=== PATIENT | male | born 1980 | race Caucasian/White ===

== ENCOUNTER 2025-07-16 13:04 | Inpatient (IN) | payer BC, SELFPAY ==
[2025-07-16] VITALS (8 sets, daily range): BP systolic 151–169; BP diastolic 99–119; PULSE 90–116; RESP 13–20; TEMP 36.4; O2SAT 97–99; BMI 33.1
--- NOTE | 2025-07-16 13:44 | ECG_ITS ---
Test Reason : weakness Blood Pressure : */* mmHG Vent. Rate : 114 BPM Atrial Rate : 114 BPM P-R Int : 136 ms QRS Dur : 84 ms QT Int : 312 ms P-R-T Axes : 7 56 41 degrees QTcB Int : 430 ms Sinus tachycardia Otherwise normal ECG No previous ECGs available Referred By: Jose Toribio Electronically Signed By: VANESSA MONTANEZ MD
--- NOTE | 2025-07-16 13:44 | ED.GENADULT ---
HPI - General Adult General Chief complaint: ETOH/Substance Use Stated complaint: alcohol withdrawal Time Seen by Provider: 07/16/25 14:45 Related Data Previous Rx's ?Medication ?Instructions ?Recorded folic acid 1 mg tablet 1 mg PO DAILY #30 tabs 07/19/25 multivitamin (Daily-Kaylyn tablet) 1 tab PO DAILY #30 tabs 07/19/25 naltrexone 50 mg tablet 25 mg (1/2 x 50 mg) PO DAILY #30 07/19/25 tabs thiamine mononitrate (vit B1) 100 100 mg PO DAILY #30 tabs 07/19/25 mg tablet trazodone 50 mg tablet 50 mg PO BEDTIME PRN insomnia #30 07/19/25 tabs Allergies Allergy/AdvReac Type Severity Reaction Status Date / Time No Known Allergies Allergy Verified 07/22/25 09:57 [facility] Social History Social History Household Members: None Housing: Apartment Alcohol intake: current Alcohol intake frequency: 3 or more drinks per day Alcohol type: hard liquor Patient Tobacco Use Status: Never used Tobacco service: No Physical Exam ED Vital Signs: BMI result Body Mass Index 33.1 Course Course Course Narrative: RME, this is a rapid medical exam performed by Brandan Toribio please refer to primary provider for complete H&P- 45-year-old male presents for evaluation of alcohol withdrawal symptoms. He reports that he drinks a 6 pack and half a bottle of liquor daily. He had last drink was just before midnight. He reports nausea, sweatiness, feeling unwell. He is slightly tachycardic and hypertensive in triage. Plan for medical clearance Medications Administered Discontinued Medications Generic Name Dose Route Start Last Admin Trade Name Kolby PRN Reason Stop Dose Admin Clonidine HCl 0.1 mg 07/16/25 21:00 07/17/25 08:15 Clonidine Hcl 0.1 Mg Tablet PO 0.1 mg BID ARELI Administration Protocol Folic Acid 1 mg 07/17/25 09:00 07/19/25 07:38 Folic Acid 1 Mg Tablet PO 07/20/25 08:59 1 mg DAILY ARELI Administration Lactated Ringer's 1,000 mls @ 999 mls/hr 07/16/25 15:00 07/16/25 18:45 Lr IV 07/16/25 17:00 Infused .Q1H1M ARELI Infusion Labetalol HCl 100 mg 07/16/25 21:00 07/17/25 08:14 Labetalol Hcl 100 Mg Tablet PO 100 mg BID ARELI Administration Protocol Labetalol HCl 100 mg 07/16/25 17:56 07/16/25 18:04 Labetalol Hcl 100 Mg Tablet PO 07/16/25 17:57 100 mg ONCE ONE Administration Protocol Multivitamins/Vitamin C 1 tab 07/17/25 09:00 07/19/25 07:38 Multivitamin Tablet PO 07/20/25 08:59 1 tab DAILY ARELI Administration Naltrexone HCl 25 mg 07/18/25 09:00 07/19/25 07:37 Naltrexone Hcl 50 Mg Tablet PO 25 mg DAILY ARELI Administration Pantoprazole Sodium 80 mg 07/16/25 14:56 07/16/25 15:03 Pantoprazole Sodium 40 Mg/10 Ml Vial IVPUSH 07/16/25 14:57 80 mg ONCE ONE Administration Pantoprazole Sodium 40 mg 07/17/25 06:30 07/19/25 06:34 Pantoprazole Sodium 40 Mg/10 Ml Vial IVPUSH 40 mg DAILY@0630 ARELI Administration Phenobarbital 60 mg 07/17/25 09:00 07/18/25 19:55 Phenobarbital 30 Mg Tablet PO 07/18/25 21:01 60 mg BID ARELI Administration Protocol Phenobarbital 30 mg 07/19/25 09:00 07/19/25 07:39 Phenobarbital 30 Mg Tablet PO 07/20/25 21:01 30 mg BID ARELI Administration Protocol Phenobarbital Sodium 338 mg 07/16/25 16:00 07/16/25 15:30 Phenobarbital Sodium 130 Mg/Ml Im Once IM 07/16/25 16:01 338 mg ONCE ONE Administration Protocol Phenobarbital Sodium 254 mg 07/16/25 19:00 07/16/25 22:14 Phenobarbital Sodium 130 Mg/Ml Vial Im Q3hx2 IM 07/16/25 22:01 254 mg Q3H ARELI Administration Protocol Sodium Chloride 3 ml 07/17/25 00:00 07/19/25 07:39 0.9 % Sodium Chloride Flush 3 Ml Syringe IVFLUSH 3 ml QSHIFT ARELI Administration Thiamine HCl 200 mg 07/16/25 15:54 07/16/25 16:15 Thiamine Hcl 100 Mg Tablet PO 07/16/25 15:55 200 mg ONCE ONE Administration Thiamine HCl 100 mg 10/22/25 09:00 07/19/25 07:38 Thiamine Hcl 100 Mg Tablet PO 07/20/25 08:59 100 mg DAILY ARELI Administration Trazodone HCl 50 mg 07/17/25 21:00 07/18/25 19:56 Trazodone Hcl 50 Mg Tablet PO 50 mg BEDTIME ARELI Administration Medical Decision Making Lab Data 07/17/25 04:03 07/19/25 06:09 Labs: Lab Results 07/16/25 Range/Units 13:57 WBC 9.1 (4.8-10.8) X10*3/uL RBC 5.39 (4.60-5.80) X10*6/uL Hgb 17.5 (14.0-18.0) g/dl Hct 48.8 (42.0-52.0) % MCV 90.5 (80.0-98.0) fL MCH 32.5 (27.0-33.0) pg MCHC 35.9 (31.0-36.0) g/dl RDW 11.9 (11.0-16.0) % Plt Count 170 (160-400) X10*3/uL MPV 9.1 L (9.4-12.4) fL Immature Gran % (Auto) 0.3 (0.0-0.4) % Neut % (Auto) 71.7 (45-73) % Lymph % (Auto) 19.2 L (20-40) % [place] % (Auto) 7.6 (2-11) % Eos % (Auto) 0.9 (0-4) % Baso % (Auto) 0.3 (0-2) % Lymph # (Auto) 1.7 (1.2-4.9) X10*3/uL [place] # (Auto) 0.7 (0.1-1.2) X10*3/uL Eos # (Auto) 0.1 (0.0-0.4) X10*3/uL Baso # (Auto) 0.0 (0.0-0.2) X10*3/uL Abs Immat Gran (auto) 0.03 (0.00-0.03) X10*3/uL Absolute Neuts (auto) 6.5 (2.0-8.3) x10*3/uL Absolute Nucleated RBC 0.000 (0.0-0.012) X10*3/uL Nucleated RBC % (auto) 0.0 (0.0-0.2) /100WBC Sodium 142 (135-145) mmol/L Potassium 4.5 (3.3-5.1) mmol/L Chloride 104 (96-108) mmol/L Carbon Dioxide 27 (22-29) mmol/L Anion Gap 16 (12-20) BUN 16 (9-16) mg/dL Creatinine 0.88 (0.5-1.4) mg/dL Estim Creat Clear Calc 146.5 Estimated GFR > 60 Random Glucose 99 (60-115) mg/dL Calcium 9.6 (8.4-10.2) mg/dL Total Bilirubin 0.6 (0.0-1.0) mg/dL AST 46 H (5-37) U/L ALT 83 H (0-40) U/L Alkaline Phosphatase 100 (39-117) U/L Total Protein 8.0 (6.5-8.0) g/dL Albumin 4.6 (3.5-5.0) g/dL Lipase 34 (8-78) U/L Ethyl Alcohol < 10 mg/dL Discharge Plan Discharge Clinical Impression: Moderate alcohol dependence Patient Disposition: Admitted As Inpatient Interventions: Admission Worksheet (ED) Last Done: 07/17/25 14:52 Discharge Date/Time: 07/17/25 15:45
[2025-07-16 14:07] LABS: MANUAL DIFF FLAG NO
[2025-07-16 14:10] LABS: Hematocrit 48.8 % (42.0-52.0); Hemoglobin 17.5 g/dl (14.0-18.0); Imm Gran Abs Auto 0.03 X10*3/uL (0.00-0.03); Imm Gran Pct Auto 0.3 % (0.0-0.4); Lymphocytes Absolute Auto 1.7 X10*3/uL (1.2-4.9); Mean Corpuscular HGB Conc 35.9 g/dl (31.0-36.0); Mean Corpuscular Hemoglobin 32.5 pg (27.0-33.0); Mean Corpuscular Volume 90.5 fL (80.0-98.0); NRBC Abs Auto 0.000 X10*3/uL (0.0-0.012); NRBC Pct Auto 0.0 /100WBC (0.0-0.2); Platelet Count 170 X10*3/uL (160-400); Red Blood Count 5.39 X10*6/uL (4.60-5.80); White Blood Count 9.1 X10*3/uL (4.8-10.8)
[2025-07-16 14:39] LABS: Alanine Aminotransferase 83 U/L (0-40); Albumin Level 4.6 g/dL (3.5-5.0); Anion Gap 16 (12-20); Aspartate Amino Transferase 46 U/L (5-37); Blood Urea Nitrogen 16 mg/dL (9-16); Calcium 9.6 mg/dL (8.4-10.2); Carbon Dioxide 27 mmol/L (22-29); Chloride 104 mmol/L (96-108); Creatinine Clr Calc Pharmacy 146.5; Estimated Glomerular Filt Rate > 60; Lipase 34 U/L (8-78); Potassium 4.5 mmol/L (3.3-5.1); Sodium 142 mmol/L (135-145); Total Protein 8.0 g/dL (6.5-8.0)
[2025-07-16 14:45] LABS: Alkaline Phosphatase 100 U/L (39-117)
[2025-07-16] MEDS: Lactated Ringers 1,000 ML 999 ML IV ×2 (15:06→16:39)
[2025-07-16] MEDS: PHENobarbitaL sodium 130 MG/ML IM ONCE 338 MG IM (15:30)
--- NOTE | 2025-07-16 16:21 | PM.IMHP ---
History of Present Illness Date of Service: 07/16/25 Attending physician on admission: Silvia Jane Chief Complaint: alcohol withdrawal Review of Systems Review of Systems: Yes all other systems are reviewed and are negative [facility] Social History Advance Directives: No Advance Directives Information Provided: Yes Meds Allergies Allergy/AdvReac Type Severity Reaction Status Date / Time No Known Allergies Allergy Verified 07/16/25 13:48 Active Medications: Current Medications Lactated Ringer's (Lr) 1,000 mls @ 999 mls/hr IV .Q1H1M ARELI Stop: 07/16/25 17:00 Last Admin: 07/16/25 15:06 Dose: 999 mls/hr Pharmacy Consult (Consult Rx Etoh Phenob Im/Po) 1 each MISCELLANE ONCE PRN; Protocol PRN Reason: Consult order Phenobarbital (Phenobarbital 30 Mg Tablet) 60 mg PO BID ARELI; Protocol Stop: 07/18/25 21:01 Phenobarbital (Phenobarbital 30 Mg Tablet) 30 mg PO BID ARELI; Protocol Stop: 07/20/25 21:01 Phenobarbital (Phenobarbital 30 Mg Tablet) 30 mg PO DAILY ARELI; Protocol Stop: 07/22/25 09:01 Phenobarbital Sodium (Phenobarbital Sodium 130 Mg/Ml Vial Im Q3hx2) 254 mg IM Q3H ARELI; Protocol Stop: 07/16/25 22:01 Physical Exam Vital Signs and Narrative: Vital Signs: Last Vital Signs Temp 97.6 F 07/16/25 13:44 Pulse 116 H 07/16/25 13:44 Resp 20 07/16/25 13:44 BP 162/108 H 07/16/25 13:44 Pulse Ox 99 07/16/25 13:44 O2 Del Method Room Air 07/16/25 13:44 BMI result Body Mass Index 33.1 Appearance: Alert.? Oriented X3.? Anxious and tremulous Eyes: Pupils equal, round and reactive to light.? Sclera nonicteric.? ENT: Pharynx normal.? Moist mucous membranes. cvs: rrr, [id number] , no murmur res: clear to auscultation ,no rhonchii or wheezing abd: no rebound or guarding ,nt, bs present. ext pulses present , no cyanosis. neuro: axo3 , nonfocal. Results Labs 07/16/25 13:57 07/16/25 13:57 Labs: Laboratory Results - last 24 hr 07/16/25 13:57 MCV 90.5 MCH 32.5 MCHC 35.9 RDW 11.9 Plt Count 170 MPV 9.1 L Immature Gran % (Auto) 0.3 Neut % (Auto) 71.7 Lymph % (Auto) 19.[address] [place] % (Auto) 7.6 Eos % (Auto) 0.9 Baso % (Auto) 0.3 Lymph # (Auto) 1.7 [place] # (Auto) 0.7 Eos # (Auto) 0.1 Baso # (Auto) 0.0 Abs Immat Gran (auto) 0.03 Absolute Neuts (auto) 6.5 Absolute Nucleated RBC 0.000 Nucleated RBC % (auto) 0.0 Anion Gap 16 Estim Creat Clear Calc 146.5 Estimated GFR > 60 Random Glucose 99 Calcium 9.6 Total Bilirubin 0.6 AST 46 H ALT 83 H Alkaline Phosphatase 100 Total Protein 8.0 Albumin 4.6 Lipase 34 Ethyl Alcohol < 10 Quality VTE VTE Risk Level:: Medical - moderate - high VTE Device Contraindication: N/A - Device Ordered VTE Drug Contraindication: N/A - Med Ordered
--- NOTE | 2025-07-16 17:42 | PM.IMHP ---
History of Present Illness Date of Service: 07/16/25 Attending physician on admission: Flex Gonzáles Chief Complaint: alcohol use disorder 45-year-old male who presented to the ED for alcohol withdrawals. Patient states that he has been drinking since Tuesday, moved to drink whiskey and beers, during the day will have about 750 mL and 6-8 beers. Patient mentions, that he felt that she needed to get into rehab, however did not find a place, began feeling worse with tremors and decided to come to the ED. Patient states that he has never had any seizures. That he began drinking more about 5 years ago after he split with his significant other. Mentions that he will usually drink as he will eventually develop insomnia and this helps him sleep. At this time with mild tremors, denies any chest pain, shortness of breath or palpitations. Review of Systems Review of Systems: 14 point review of systems obtained, negative except as stated above. [facility] Social History Alcohol intake: current Alcohol intake frequency: 3 or more drinks per day Alcohol type: hard liquor Smoked in Last 30 Days: No Use of substances other than those prescribed or required for medical reasons: No Advance Directives: No Advance Directives Information Provided: Yes Do you have a plan to hurt others: No Plan Meds Allergies Allergy/AdvReac Type Severity Reaction Status Date / Time No Known Allergies Allergy Verified 07/16/25 13:48 Active Medications: Current Medications Clonidine HCl (Clonidine Hcl 0.1 Mg Tablet) 0.1 mg PO BID ARELI; Protocol Folic Acid (Folic Acid 1 Mg Tablet) 1 mg PO DAILY ARELI Stop: 07/20/25 08:59 Hydroxyzine HCl (Hydroxyzine Hcl 25 Mg Tablet) 25 mg PO Q6H PRN PRN Reason: Anxiety Magnesium Hydroxide (Milk Of Magnesia 30 Ml Oral.Susp) 30 ml PO DAILY PRN PRN Reason: Constipation Melatonin (Melatonin 3 Mg Tablet) 6 mg PO BEDTIME PRN PRN Reason: Insomnia Metoprolol Tartrate (Metoprolol Tartrate 25 Mg Tablet) 25 mg PO Q6H PRN; Protocol PRN Reason: Alcohol Withdrawal Multivitamins/Vitamin C (Multivitamin Tablet) 1 tab PO DAILY ARELI Stop: 07/20/25 08:59 Ondansetron HCl (Ondansetron Hcl 4 Mg/2 Ml Vial) 4 mg IVPUSH Q8H PRN PRN Reason: Nausea and Vomiting Pantoprazole Sodium (Pantoprazole Sodium 40 Mg/10 Ml Vial) 40 mg IVPUSH DAILY@0630 [facility] Pharmacy Consult (Consult Rx Etoh Phenob Im/Po) 1 each MISCELLANE ONCE PRN; Protocol PRN Reason: Consult order Phenobarbital (Phenobarbital 30 Mg Tablet) 60 mg PO BID [facility]; Protocol Stop: 07/18/25 21:01 Phenobarbital (Phenobarbital 30 Mg Tablet) 30 mg PO BID [facility]; Protocol Stop: 07/20/25 21:01 Phenobarbital (Phenobarbital 30 Mg Tablet) 30 mg PO DAILY [facility]; Protocol Stop: 07/22/25 09:01 Phenobarbital Sodium (Phenobarbital Sodium 130 Mg/Ml Vial Im Q3hx2) 254 mg IM Q3H [facility]; Protocol Stop: 07/16/25 22:01 Sodium Chloride (0.9 % Sodium Chloride Flush 3 Ml Syringe) 3 ml IVFLUSH QSHIFT [facility] Thiamine HCl (Thiamine Hcl 100 Mg Tablet) 100 mg PO DAILY [facility] Stop: 07/20/25 08:59 Trazodone HCl (Trazodone Hcl 50 Mg Tablet) 50 mg PO Q8H PRN PRN Reason: Anxiety Physical Exam Vital Signs and Narrative: Vital Signs: Last Vital Signs Temp 97.6 F 07/16/25 13:44 Pulse 105 H 07/16/25 16:44 Resp 18 07/16/25 16:44 BP 161/110 H 07/16/25 16:44 Pulse Ox 99 07/16/25 16:44 O2 Del Method Room Air 07/16/25 16:44 BMI result Body Mass Index 33.1 General: AxOx3, No acute distress Head: AT/NC ENT: Moist mucous membranes Neck: supple CVS; RRR, S1 S2 normal Lungs: Clear bilateral breath sounds, no wheezes or crackles Abd: Soft non tender, non distended Ext: No edema and no calf tenderness MSK: moving all 4 limbs Skin: No cyanosis or edema Psych: Cooperative with exam Neurology: mild tremors Results Labs 07/16/25 13:57 07/16/25 13:57 Labs: Laboratory Results - last 24 hr 07/16/25 13:57 MCV 90.5 MCH 32.5 MCHC 35.9 RDW 11.9 Plt Count 170 MPV 9.1 L Immature Gran % (Auto) 0.3 Neut % (Auto) 71.7 Lymph % (Auto) 19.2 L [place] % (Auto) 7.6 Eos % (Auto) 0.9 Baso % (Auto) 0.3 Lymph # (Auto) 1.7 [place] # (Auto) 0.7 Eos # (Auto) 0.1 Baso # (Auto) 0.0 Abs Immat Gran (auto) 0.03 Absolute Neuts (auto) 6.5 Absolute Nucleated RBC 0.000 Nucleated RBC % (auto) 0.0 Anion Gap 16 Estim Creat Clear Calc 146.5 Estimated GFR > 60 Random Glucose 99 Calcium 9.6 Total Bilirubin 0.6 AST 46 H ALT 83 H Alkaline Phosphatase 100 Total Protein 8.0 Albumin 4.6 Lipase 34 Ethyl Alcohol < 10 Assessment and Plan (1) Alcohol use disorder, moderate, dependence: Status: Acute Plan Assessment: 45-year-old male who presented to the hospital for withdrawals with last drink yesterday. Admitted to the hospital with phenobarbital protocol. Alcohol use disorder, moderate, dependence, CAGE 3/4 Alcohol withdrawal -we will continue with phenobarbital protocol, folic acid, thiamine 100 mg q.d. x3 days, multivitamins -clonidine, hydroxyzine for agitation/restlessness ordered -trazodone 50 mg q.8 hours for insomnia, anxiety -counseling given on the importance of discontinuing alcohol use, patient resident and understanding -addiction medicine consulted Dyspepsia -we will initiate Protonix 40 mg FEN: NI, replete as needed, Regular GI PPX: Protonix DVT PPX: Not indicated, continue with ambulation Code status: Full code Disposition: All questions and concerns with the patient were answered to satisfaction. All pertinent clinical documents, images and labs were reviewed. DISCLAIMER: This document was created using voice recognition software. Any mistakes in the prescription are unintentional. An attempt was made to focus for accuracy, but to expedite availability, some errors may persist. Please contact with any need for correction or further clarification Quality Stroke Does the patient have a stroke diagnosis?: No VTE Prior VTE?: No VTE Risk Level:: Medical - moderate - high VTE Device Contraindication: N/A - Device Ordered VTE Drug Contraindication: N/A - Med Ordered
--- NOTE | 2025-07-16 18:44 | PHA.MEDREC ---
Addendum entered by Jorge Montes, PharmD 07/16/25 18:50: MED REC CHECKED BY [facility] Original Note: Pharmacy Consult ? Medication Reconciliation Pharmacy has completed the medication reconciliation. Spoke with pt and he confirmed he only takes an OTC gas relief medication but doesn't remember what one and states that is it for medications at this time.
[2025-07-16] MEDS: PHENobarbitaL sodium 130 MG/ML VIAL IM Q3Hx2 254 MG IM ×2 (20:00→22:14)
[2025-07-16 22:38] LABS: Appearance Urine Clear; Glucose Urine UA Negative (Negative); PH 8.5 (5.0-9.0); Specific Gravity - Urine 1.020 (1.005-1.025)
[2025-07-16 22:47] LABS: Cannabinoid Screen Urine Not Detected (Not Detect)
[2025-07-17] VITALS (12 sets, daily range): BP systolic 117–141; BP diastolic 75–96; PULSE 77–95; RESP 13–18; TEMP 36.1–36.7; O2SAT 95–98; BMI 32.1
--- NOTE | 2025-07-17 03:10 | HO.NURTONUR ---
Chief Complaint: alcohol use disorder 45yr old, male, full code, NKA, A+Ox4, regular diet, who presented to the ED for alcohol withdrawals. Patient states that he has been drinking since Tuesday, moved to drink whiskey and beers, during the day will have about 750 mL and 6-8 beers. Patient mentions, that he felt that he needed to get into rehab, however did not find a place, began feeling worse with tremors and decided to come to the ED. Patient states that he has never had any seizures. That he began drinking more about 5 years ago after he split with his significant other. Mentions that he will usually drink as he will eventually develop insomnia and this helps him sleep. At this time with mild tremors, denies any chest pain, shortness of breath or palpitations. 20g IV to left upper arm Plan: Admitted to the hospital with phenobarbital protocol, folic acid, thiamine 100 mg q.d. x3 days, multivitamins -clonidine, hydroxyzine for agitation/restlessness -trazodone 50 mg q.8 hours for insomnia, anxiety -addiction medicine consulted -will initiate Protonix 40 mg
[2025-07-17 05:13] LABS: Hematocrit 45.2 % (42.0-52.0); Hemoglobin 15.7 g/dl (14.0-18.0); Mean Corpuscular HGB Conc 34.7 g/dl (31.0-36.0); Mean Corpuscular Hemoglobin 32.2 pg (27.0-33.0); Mean Corpuscular Volume 92.6 fL (80.0-98.0); NRBC Abs Auto 0.000 X10*3/uL (0.0-0.012); NRBC Pct Auto 0.0 /100WBC (0.0-0.2); Platelet Count 156 X10*3/uL (160-400); Red Blood Count 4.88 X10*6/uL (4.60-5.80); White Blood Count 6.8 X10*3/uL (4.8-10.8)
[2025-07-17 05:33] LABS: Alanine Aminotransferase 64 U/L (0-40); Albumin Level 3.8 g/dL (3.5-5.0); Alkaline Phosphatase 86 U/L (39-117); Anion Gap 13 (12-20); Aspartate Amino Transferase 43 U/L (5-37); Blood Urea Nitrogen 14 mg/dL (9-16); Calcium 9.1 mg/dL (8.4-10.2); Carbon Dioxide 23 mmol/L (22-29); Chloride 106 mmol/L (96-108); Creatinine Clr Calc Pharmacy 157.2; Estimated Glomerular Filt Rate > 60; Magnesium 2.1 mg/dL (1.6-2.6); Potassium 4.0 mmol/L (3.3-5.1); Sodium 138 mmol/L (135-145); Total Protein 6.8 g/dL (6.5-8.0)
[2025-07-17] MEDS: 0.9 % Sodium Chloride Flush 3 ML SYRINGE IVFLUSH ×3 (08:16→20:21)
--- NOTE | 2025-07-17 09:54 | MHC.CM.PN ---
Pt. lives alone, he does not use home health services or DME, PCP confirmed: Dr. Royal, HCP discussed, he will complete form here and it will be added to chart. Pt can arrange a ride home at [place], DCP: home, self care, or rehab for alcoholism. CM to follow for DC needs.
--- NOTE | 2025-07-17 09:57 | HO.PM.IMPN ---
Subjective Subjective Date of Service: 07/17/25 Interval History: BP/HR improved, desires sobriety Review of Systems Review of Systems: Yes all other systems are reviewed and are negative Physical Exam Vital Signs: Vital Signs: Last Vital Signs Temp 97.7 F 07/17/25 09:48 Pulse 81 07/17/25 09:48 Resp 16 07/17/25 09:48 BP 118/75 07/17/25 09:48 Pulse Ox 95 07/17/25 09:48 O2 Del Method Room Air 07/17/25 09:48 BMI result Body Mass Index 33.1 Gen: in no acute distress HEENT: sclera anicteric, moist mucus membranes Neck: supple Lungs: clear to auscultation bilaterally Heart: regular rate and rhythm, no murmurs Abd: soft, non-tender, non-distended Ext: no edema Skin: warm/well-perfused Neuro: alert and oriented x3, no focal findings Psych: appropriate affect Objective Data Active Medications Clonidine HCl (Clonidine Hcl 0.1 Mg Tablet) 0.1 mg PO BID [facility]; Protocol Last Admin: 07/17/25 08:15 Dose: 0.1 mg Documented By: ANTOLIN Folic Acid (Folic Acid 1 Mg Tablet) 1 mg PO DAILY [facility] Stop: 07/20/25 08:59 Last Admin: 07/17/25 08:14 Dose: 1 mg Documented By: ANTOLIN Hydroxyzine HCl (Hydroxyzine Hcl 25 Mg Tablet) 25 mg PO Q6H PRN PRN Reason: Anxiety Labetalol HCl (Labetalol Hcl 100 Mg Tablet) 100 mg PO BID [facility]; Protocol Last Admin: 07/17/25 08:14 Dose: 100 mg Documented By: ANTOLIN Magnesium Hydroxide (Milk Of Magnesia 30 Ml Oral.Susp) 30 ml PO DAILY PRN PRN Reason: Constipation Melatonin (Melatonin 3 Mg Tablet) 6 mg PO BEDTIME PRN PRN Reason: Insomnia Metoprolol Tartrate (Metoprolol Tartrate 25 Mg Tablet) 25 mg PO Q6H PRN; Protocol PRN Reason: Alcohol Withdrawal Multivitamins/Vitamin C (Multivitamin Tablet) 1 tab PO DAILY [facility] Stop: 07/20/25 08:59 Last Admin: 07/17/25 08:15 Dose: 1 tab Documented By: ANTOLIN Ondansetron HCl (Ondansetron Hcl 4 Mg/2 Ml Vial) 4 mg IVPUSH Q8H PRN PRN Reason: Nausea and Vomiting Pantoprazole Sodium (Pantoprazole Sodium 40 Mg/10 Ml Vial) 40 mg IVPUSH DAILY@0630 [facility] Last Admin: 07/17/25 06:34 Dose: 40 mg Documented By: ELIAS Pharmacy Consult (Consult Rx Etoh Phenob Im/Po) 1 each MISCELLANE ONCE PRN; Protocol PRN Reason: Consult order Phenobarbital (Phenobarbital 30 Mg Tablet) 60 mg PO BID [facility]; Protocol Stop: 07/18/25 21:01 Last Admin: 07/17/25 08:15 Dose: 60 mg Documented By: ANTOLIN Phenobarbital (Phenobarbital 30 Mg Tablet) 30 mg PO BID [facility]; Protocol Stop: 07/20/25 21:01 Phenobarbital (Phenobarbital 30 Mg Tablet) 30 mg PO DAILY [facility]; Protocol Stop: 07/22/25 09:01 Sodium Chloride (0.9 % Sodium Chloride Flush 3 Ml Syringe) [facility] Last Admin: 07/17/25 08:16 Dose: 3 ml Documented By: ANTOLIN Thiamine HCl (Thiamine Hcl 100 Mg Tablet) 100 mg PO DAILY [facility] Stop: 07/20/25 08:59 Last Admin: 07/17/25 08:15 Dose: 100 mg Documented By: ANTOLIN Trazodone HCl (Trazodone Hcl 50 Mg Tablet) 50 mg PO Q8H PRN PRN Reason: Anxiety Labs 07/17/25 04:03 07/17/25 04:03 Labs: Laboratory Results - last 24 hr 07/16/25 07/16/25 07/17/25 13:57 22:29 04:03 MCV 90.5 92.6 MCH 32.5 32.2 MCHC 35.9 34.7 RDW 11.9 11.9 Plt Count 170 156 L MPV 9.1 L 9.5 Immature Gran % (Auto) 0.3 Neut % (Auto) 71.7 Lymph % (Auto) 19.2 L [place] % (Auto) 7.6 Eos % (Auto) 0.9 Baso % (Auto) 0.3 Lymph # (Auto) 1.7 [place] # (Auto) 0.7 Eos # (Auto) 0.1 Baso # (Auto) 0.0 Abs Immat Gran (auto) 0.03 Absolute Neuts (auto) 6.5 Absolute Nucleated RBC 0.000 0.000 Nucleated RBC % (auto) 0.0 0.0 Anion Gap 16 13 Estim Creat Clear Calc 146.5 157.2 Estimated GFR > 60 > 60 Random Glucose 99 91 Calcium 9.6 9.1 Magnesium 2.1 Total Bilirubin 0.6 0.9 AST 46 H 43 H ALT 83 H 64 H Alkaline Phosphatase 100 86 Total Protein 8.0 6.8 Albumin 4.6 3.8 Lipase 34 Urine Color Yellow Urine Appearance Clear Urine pH 8.5 Ur Specific [place] 1.020 Urine Protein Trace Urine Glucose (UA) Negative Urine Ketones Negative Urine Blood Negative Urine Nitrite Negative Ur Leukocyte Esterase Negative Urine RBC 0-2 Urine WBC 0-5 Ur Squamous Epith Cells 0-2 Urine Bacteria None Seen Hyaline Casts 0-2 Urine Opiates Screen Not Detected Ur Buprenorphine Scrn Not Detected Ur Oxycodone Screen Not Detected Urine Methadone Screen Not Detected Urine Fentanyl Screen Not Detected Ur Barbiturates Screen POSITIVE H Ur Phencyclidine Scrn Not Detected Ur Amphetamines Screen Not Detected U Benzodiazepines Scrn Not Detected Urine Cocaine Screen Not Detected U Marijuana (THC) Screen Not Detected Ethyl Alcohol < 10 Assessment and Plan (1) Alcohol use disorder, moderate, dependence: Status: Acute Assessment and Plan: d2, 45yo M with AUD admitted with acute withdrawal syndrome acute EtOH withdrawal: phenobarbital taper, folate, thiamine, multivitamin; prn hydroxyzine + trazodone; Addiction Medicine consult elevated BP: d/c labetalol + clonidine dyspepsia: PPI VTE ppx: SCDs dispo: eventual home In my clinical judgment, the patient requires continued inpatient hospitalization for the following reasons: phenobarbital taper Total time managing care of this patient today: 35 minutes. Quality Stroke Does the patient have a stroke diagnosis?: No VTE Prior VTE?: No VTE Risk Level:: Medical - moderate - high VTE Device Contraindication: N/A - Device Ordered VTE Drug Contraindication: N/A - Med Ordered
--- NOTE | 2025-07-17 13:17 | MHC.RECOVRN ---
Patient had a positive screen for unhealthy alcohol use on admission, subsequently, met with pt to discuss alcohol use, recovery supports, and concerns related to increased risk of alcohol related problems. ? Patient reports consuming 5-8 beers and 750 ml of [employer] on a typical evening and most recently consumed a 24pk of beer in less than 24 hours. He reports having no recollection of Tuesday. ?I often drink until I black out. People will tell me things I?ve said to them and I don;t remember it, at all. It?s frightening and I don?t want to keep living this way. I have too many people that rely on me and that I provide for?. Pt reports he has been drinking heavily for the past 5 years, however, his girlfriend has been abstinent from alcohol for 7 years and states she sometimes attends AA meetings. He reports hiding his drinking from her and waiting until she leaves to begin consuming alcohol until ?I black out?.? Pt states he will often wake feeling ?shaky and sweaty?. He denies experiencing withdrawal seizures or drinking while at work to calm his symptoms.? Pt reports attempting to taper his drinking about 3-4 years ago. ?It worked for a little while but I just ended up back in the same position?. He states he has also remained abstinent for a period of 1 year but returned to use on his birthday as a means to celebrate, 20 days abstinence reported this past March And again, I picked right back up where I left off Pt? denies prior treatment for his alcohol use but does reports trying to contact [facility] but states he ?they were trying to push a disaster recovery coordinator which I don?t think is for me?. Pt was educated on the roles of a disaster recovery coordinator and how it may be helpful but was validated by TW that everyones? recovery journey is their own.? Pt states his goal is to remain abstinent from alcohol for ?awhile? with the ability to control his drinking in the future. TW? discussed MIKE to which the pt reports previously utilizing naltrexone but fells ?It made me too groggy?. Options for MIKE discussed but declined at this time. Pt reports his girlfriend and family are strong recovery supports. He also reports notifying several friends that he will not be drinking alcohol and feels his friends are very supportive of his decision.? Discussed how alcohol use has impacted health, including negative impact on mental health and overall physical well being.? Discussed risk and reduction strategies including drinking below the recommended limit, seeking help from one of the multiple pathways to recovery, and drinking water between beverages containing alcohol.? Provided pt with written resources including information on inpatient and outpatient treatment, MIKE, harm reduction, &? recovery coaching.? Pt declines intervention, MIKE, or outpatient appt for treatment related to AUD at this time. Pt was provided with TW?s contact information if questions or concerns arise, which he denies at this time?
--- NOTE | 2025-07-17 16:04 | HO.ADDICTCON ---
History of Present Illness Date of Service: 07/17/2025 Chief Complaint: alcohol withdrawal Reason for Consult: AUD and withdrawal Sources of Information: patient interviewed and chart reviewed HPI Narrative: Patient is a a 45 year old male with AUD, who presented to [facility] in acute withdrawal, requiring phenobarbital and medical admission. Per patient he had been trying to get into ATS facility most of the day for AUD, however unsuccessful, so he presented to the ED. He reports that alcohol use has increased over the last few years as a way to address difficulty sleeping. Over time has increase in amount -drinking 6-8 beers every night in addition to a fifth oh hard alcohol. Drinking has impacted how he feels physically, impacted motivation and mood. He reports eating maybe one meal per day. His goal is to abstain from alcohol all together. He denies any other substance use or treatment history, aside from brief trial of naltrexone He states he did not like the way it made him feel, I felt groggy and took it for 3 -4 days. Strong family and social supports Withdrawal sx much improved Appetite improved, no nausea/vomiting No tremor noted Medical Evaluation Reviewed: Yes Review of Systems Constitutional: Reports as per HPI Diagnostics Vital Signs (24Hr): Vital Signs - 24 hr 07/16/25 16:44 07/16/25 17:57 07/16/25 18:04 Temperature Pulse Rate 105 H 100 100 Respiratory Rate 18 18 Blood Pressure 161/110 H 169/119 H 169/119 H Pulse Oximetry 99 98 Oxygen Delivery Method Room Air 07/16/25 20:04 07/16/25 22:08 07/16/25 22:14 Temperature Pulse Rate 98 93 Respiratory Rate 20 13 Blood Pressure 169/99 H 156/103 H 156/103 H Pulse Oximetry 97 97 Oxygen Delivery Method Room Air Room Air 07/16/25 22:14 07/16/25 22:41 07/17/25 00:45 Temperature Pulse Rate 90 94 89 Respiratory Rate 17 17 Blood Pressure 156/103 H 151/111 H 132/91 H Pulse Oximetry 99 97 Oxygen Delivery Method Room Air Room Air 07/17/25 04:00 07/17/25 06:00 07/17/25 08:12 Temperature 97.6 F 98.1 F Pulse Rate 83 77 95 Respiratory Rate 18 13 17 Blood Pressure 135/96 H 122/81 Pulse Oximetry 98 97 97 Oxygen Delivery Method Room Air Room Air Room Air 07/17/25 08:14 07/17/25 08:15 07/17/25 09:48 Temperature 97.7 F Pulse Rate 95 81 Respiratory Rate 16 Blood Pressure 122/81 122/81 118/75 Pulse Oximetry 95 Oxygen Delivery Method Room Air 07/17/25 12:42 07/17/25 14:28 Temperature 97.2 F 97.4 F Pulse Rate 81 93 Respiratory Rate 17 17 Blood Pressure 131/86 138/88 Pulse Oximetry 97 98 Oxygen Delivery Method Room Air Room Air BMI result Body Mass Index 33.1 Labs 07/17/25 04:03 07/17/25 04:03 Labs: Laboratory Results - last 48 hr 07/16/25 07/16/25 07/17/25 13:57 22:29 04:03 WBC 9.1 6.8 RBC 5.39 4.88 Hgb 17.5 15.7 Hct 48.8 45.2 MCV 90.5 92.6 MCH 32.5 32.2 MCHC 35.9 34.7 RDW 11.9 11.9 Plt Count 170 156 L MPV 9.1 L 9.5 Immature Gran % (Auto) 0.3 Neut % (Auto) 71.7 Lymph % (Auto) 19.2 L Haines % (Auto) 7.6 Eos % (Auto) 0.9 Baso % (Auto) 0.3 Lymph # (Auto) 1.7 Haines # (Auto) 0.7 Eos # (Auto) 0.1 Baso # (Auto) 0.0 Abs Immat Gran (auto) 0.03 Absolute Neuts (auto) 6.5 Absolute Nucleated RBC 0.000 0.000 Nucleated RBC % (auto) 0.0 0.0 Sodium 142 138 Potassium 4.5 4.0 Chloride 104 106 Carbon Dioxide 27 23 Anion Gap 16 13 BUN 16 14 Creatinine 0.88 0.82 Estim Creat Clear Calc 146.5 157.2 Estimated GFR > 60 > 60 Random Glucose 99 91 Calcium 9.6 9.1 Magnesium 2.1 Total Bilirubin 0.6 0.9 AST 46 H 43 H ALT 83 H 64 H Alkaline Phosphatase 100 86 Total Protein 8.0 6.8 Albumin 4.6 3.8 Lipase 34 Urine Color Yellow Urine Appearance Clear Urine pH 8.5 Ur Specific Welch 1.020 Urine Protein Trace Urine Glucose (UA) Negative Urine Ketones Negative Urine Blood Negative Urine Nitrite Negative Ur Leukocyte Esterase Negative Urine RBC 0-2 Urine WBC 0-5 Ur Squamous Epith Cells 0-2 Urine Bacteria None Seen Hyaline Casts 0-2 Urine Opiates Screen Not Detected Ur Buprenorphine Scrn Not Detected Ur Oxycodone Screen Not Detected Urine Methadone Screen Not Detected Urine Fentanyl Screen Not Detected Ur Barbiturates Screen POSITIVE H Ur Phencyclidine Scrn Not Detected Ur Amphetamines Screen Not Detected U Benzodiazepines Scrn Not Detected Urine Cocaine Screen Not Detected U Marijuana (THC) Screen Not Detected Ethyl Alcohol < 10 Mental Status Exam Mental Status Exam Patient Appearance: Appropriate Level of Consciousness: Awake, Appropriate and Alert Patient Behavior: Appropriate and Talkative Affect Description: Calm Speech Pattern: Clear Thought Process: Intact Thought Content: positive for Intact Judgement: Good Medications Medications Current Medications Folic Acid (Folic Acid 1 Mg Tablet) 1 mg PO DAILY REPLACED BY [facility] Stop: 07/20/25 08:59 Last Admin: 07/17/25 08:14 Dose: 1 mg Hydroxyzine HCl (Hydroxyzine Hcl 25 Mg Tablet) 25 mg PO Q6H PRN PRN Reason: Anxiety Magnesium Hydroxide (Milk Of Magnesia 30 Ml Oral.Susp) 30 ml PO DAILY PRN PRN Reason: Constipation Melatonin (Melatonin 3 Mg Tablet) 6 mg PO BEDTIME PRN PRN Reason: Insomnia Multivitamins/Vitamin C (Multivitamin Tablet) 1 tab PO DAILY REPLACED BY [facility] Stop: 07/20/25 08:59 Last Admin: 07/17/25 08:15 Dose: 1 tab Ondansetron HCl (Ondansetron Hcl 4 Mg/2 Ml Vial) 4 mg IVPUSH Q8H PRN PRN Reason: Nausea and Vomiting Pantoprazole Sodium (Pantoprazole Sodium 40 Mg/10 Ml Vial) 40 mg IVPUSH DAILY@0630 REPLACED BY [facility] Last Admin: 07/17/25 06:34 Dose: 40 mg Pharmacy Consult (Consult Rx Etoh Phenob Im/Po) 1 each MISCELLANE ONCE PRN; Protocol PRN Reason: Consult order Phenobarbital (Phenobarbital 30 Mg Tablet) 60 mg PO BID REPLACED BY [facility]; Protocol Stop: 07/18/25 21:01 Last Admin: 07/17/25 08:15 Dose: 60 mg Phenobarbital (Phenobarbital 30 Mg Tablet) 30 mg PO BID REPLACED BY [facility]; Protocol Stop: 07/20/25 21:01 Phenobarbital (Phenobarbital 30 Mg Tablet) 30 mg PO DAILY REPLACED BY [facility]; Protocol Stop: 07/22/25 09:01 Sodium Chloride (0.9 % Sodium Chloride Flush 3 Ml Syringe) 3 ml IVFLUSH QSHIFT [facility] Last Admin: 07/17/25 08:16 Dose: 3 ml Thiamine HCl (Thiamine Hcl 100 Mg Tablet) 100 mg PO DAILY [facility] Stop: 07/20/25 08:59 Last Admin: 07/17/25 08:15 Dose: 100 mg Allergies Allergies Allergy/AdvReac Type Severity Reaction Status Date / Time No Known Allergies Allergy Verified 07/16/25 13:48 Assessment & Plan Assessment & Plan (1) Alcohol use disorder, moderate, dependence: Status: Acute Code(s): F10.20 - Alcohol dependence, uncomplicated Assessment and Plan: withdrawal sx well managed with phenobarbital agreeable to re-trial of naltrexone--will start at half dose due to reported side effects trazodone 50mg QHS continue thiamine and folic acid at home following discharge neon tube bender to follow up and coordinate follow up with [facility] Total time managing care of this patient today ___40_ minutes. [facility] Social History Social History Household Members: None Housing: Apartment Alcohol intake: current Alcohol intake frequency: 3 or more drinks per day Alcohol type: hard liquor Patient Tobacco Use Status: Never used Tobacco service: No
[2025-07-18 03:07] VITALS: BP 114/76; PULSE 78; RESP 18; TEMP 36.1; O2SAT 96
[2025-07-18 06:57] VITALS: BP 127/84; PULSE 79; RESP 18; TEMP 36.6; O2SAT 97
[2025-07-18 07:48] LABS: Alanine Aminotransferase 95 U/L (0-40); Albumin Level 4.2 g/dL (3.5-5.0); Alkaline Phosphatase 88 U/L (39-117); Anion Gap 13 (12-20); Aspartate Amino Transferase 76 U/L (5-37); Blood Urea Nitrogen 14 mg/dL (9-16); Calcium 9.2 mg/dL (8.4-10.2); Carbon Dioxide 26 mmol/L (22-29); Chloride 106 mmol/L (96-108); Creatinine Clr Calc Pharmacy 165.0; Estimated Glomerular Filt Rate > 60; Magnesium 2.2 mg/dL (1.6-2.6); Potassium 4.5 mmol/L (3.3-5.1); Sodium 140 mmol/L (135-145); Total Protein 7.1 g/dL (6.5-8.0)
[2025-07-18] MEDS: 0.9 % Sodium Chloride Flush 3 ML SYRINGE IVFLUSH ×2 (08:13→19:56)
--- NOTE | 2025-07-18 09:17 | MHC.RECOVRN ---
Tw met with pt in 468 for ongoing support On approach pt is laying in bed with eyes closed but woke easily to name being called. Pt reports poor sleep d/t frequent awakening by staff and states he is sleepy Pt also attributes sleepiness to starting Naltrexone for AUD Pt provided education about side effect of Naltrexone and he verbalized his understanding. Pt states he was able to eat breakfast and would like to be able to rest. TW available as needed to offer continued support.
--- NOTE | 2025-07-18 09:48 | P.PNIM_ITS ---
Subjective Subjective Date of Service: 07/18/25 Interval History: withdrawal under control; started naltrexone Review of Systems Review of Systems: Yes all other systems are reviewed and are negative Physical Exam 2 Vital Signs: Vital Signs: Last Vital Signs Temp 97.9 F 07/18/25 06:57 Pulse 79 07/18/25 06:57 Resp 18 07/18/25 06:57 BP 127/84 07/18/25 06:57 Pulse Ox 97 07/18/25 06:57 O2 Del Method Room Air 07/18/25 06:57 BMI result Body Mass Index 32.1 Gen: in no acute distress HEENT: sclera anicteric, moist mucus membranes Neck: supple Lungs: clear to auscultation bilaterally Heart: regular rate and rhythm, no murmurs Abd: soft, non-tender, non-distended Ext: no edema Skin: warm/well-perfused Neuro: alert and oriented x3, no focal findings Psych: appropriate affect Objective Data Active Medications Folic Acid (Folic Acid 1 Mg Tablet) 1 mg PO DAILY [facility] Stop: 07/20/25 08:59 Last Admin: 07/18/25 08:10 Dose: 1 mg Documented By: ARIAS Hydroxyzine HCl (Hydroxyzine Hcl 25 Mg Tablet) 25 mg PO Q6H PRN PRN Reason: Anxiety Magnesium Hydroxide (Milk Of Magnesia 30 Ml Oral.Susp) 30 ml PO DAILY PRN PRN Reason: Constipation Melatonin (Melatonin 3 Mg Tablet) 6 mg PO BEDTIME PRN PRN Reason: Insomnia Multivitamins/Vitamin C (Multivitamin Tablet) 1 tab PO DAILY [facility] Stop: 07/20/25 08:59 Last Admin: 07/18/25 08:10 Dose: 1 tab Documented By: ARIAS Naltrexone HCl (Naltrexone Hcl 50 Mg Tablet) 25 mg PO DAILY [facility] Last Admin: 07/18/25 08:10 Dose: 25 mg Documented By: ARIAS Ondansetron HCl (Ondansetron Hcl 4 Mg/2 Ml Vial) 4 mg IVPUSH Q8H PRN PRN Reason: Nausea and Vomiting Pantoprazole Sodium (Pantoprazole Sodium 40 Mg/10 Ml Vial) 40 mg IVPUSH DAILY@0630 [facility] Last Admin: 07/18/25 06:23 Dose: 40 mg Documented By: SOFY Pharmacy Consult (Consult Rx Etoh Phenob Im/Po) 1 each MISCELLANE ONCE PRN; Protocol PRN Reason: Consult order Phenobarbital (Phenobarbital 30 Mg Tablet) 60 mg PO BID [facility]; Protocol Stop: 07/18/25 21:01 Last Admin: 07/18/25 08:09 Dose: 60 mg Documented By: ARIAS Phenobarbital (Phenobarbital 30 Mg Tablet) 30 mg PO BID [facility]; Protocol Stop: 07/20/25 21:01 Phenobarbital (Phenobarbital 30 Mg Tablet) 30 mg PO DAILY [facility]; Protocol Stop: 07/22/25 09:01 Sodium Chloride (0.9 % Sodium Chloride Flush 3 Ml Syringe) 3 ml IVFLUSH QSHIFT [facility] Last Admin: 07/18/25 08:13 Dose: 3 ml Documented By: ARIAS Thiamine HCl (Thiamine Hcl 100 Mg Tablet) 100 mg PO DAILY [facility] Stop: 07/20/25 08:59 Last Admin: 07/18/25 08:10 Dose: 100 mg Documented By: ARIAS Trazodone HCl (Trazodone Hcl 50 Mg Tablet) 50 mg PO BEDTIME [facility] Last Admin: 07/17/25 20:18 Dose: 50 mg Documented By: ROSEYB Labs 07/17/25 04:03 07/18/25 06:38 Labs: Laboratory Results - last 24 hr 07/18/25 06:38 Anion Gap 13 Estim Creat Clear Calc 165.0 Estimated GFR > 60 Random Glucose 96 Calcium 9.2 Magnesium 2.2 Total Bilirubin 0.8 AST 76 H ALT 95 H Alkaline Phosphatase 88 Total Protein 7.1 Albumin 4.2 Assessment and Plan (1) Alcohol use disorder, moderate, dependence: Status: Acute Assessment and Plan: d3, 45yo M with AUD admitted with acute withdrawal syndrome acute EtOH withdrawal: phenobarbital taper, folate, thiamine, multivitamin; prn hydroxyzine + trazodone; Addiction Medicine consulted; started naltrexone elevated BP due to withdrawal: d/c;ed labetalol + clonidine dyspepsia: PPI VTE ppx: SCDs dispo: eventual home In my clinical judgment, the patient requires continued inpatient hospitalization for the following reasons: phenobarbital taper Total time managing care of this patient today: 35 minutes. Quality Stroke Does the patient have a stroke diagnosis?: No VTE Prior VTE?: No VTE Risk Level:: Medical - moderate - high VTE Device Contraindication: N/A - Device Ordered VTE Drug Contraindication: N/A - Med Ordered
[2025-07-18 11:03] VITALS: BP 126/76; PULSE 86; RESP 18; TEMP 36.5; O2SAT 97
--- NOTE | 2025-07-18 15:27 | MHC.RECOVRN ---
Intake appt scheduled at [facility] for 07/22/25 @ 10am
[2025-07-18 15:39] VITALS: BP 149/90; PULSE 91; RESP 17; TEMP 36.3; O2SAT 96
[2025-07-18 20:00] VITALS: BP 130/80; PULSE 91; RESP 19; TEMP 36.6; O2SAT 97
[2025-07-18 23:49] VITALS: BP 116/79; PULSE 82; RESP 18; TEMP 36.1; O2SAT 95
[2025-07-19 03:22] VITALS: BP 105/60; PULSE 75; RESP 18; TEMP 36.4; O2SAT 94
[2025-07-19 06:58] VITALS: BP 138/97; PULSE 78; RESP 18; TEMP 36.9; O2SAT 97
[2025-07-19 07:35] LABS: Alanine Aminotransferase 130 U/L (0-40); Albumin Level 4.2 g/dL (3.5-5.0); Alkaline Phosphatase 86 U/L (39-117); Anion Gap 11 (12-20); Aspartate Amino Transferase 94 U/L (5-37); Blood Urea Nitrogen 11 mg/dL (9-16); Calcium 9.2 mg/dL (8.4-10.2); Carbon Dioxide 31 mmol/L (22-29); Chloride 103 mmol/L (96-108); Creatinine Clr Calc Pharmacy 149.5; Estimated Glomerular Filt Rate > 60; Magnesium 2.1 mg/dL (1.6-2.6); Potassium 4.5 mmol/L (3.3-5.1); Sodium 140 mmol/L (135-145); Total Protein 7.3 g/dL (6.5-8.0)
[2025-07-19] MEDS: 0.9 % Sodium Chloride Flush 3 ML SYRINGE IVFLUSH (07:39)
--- NOTE | 2025-07-19 11:10 | P.DS_ITS ---
DS: Providers Provider Date of Service: 07/19/25 Date of admission: 07/16/25 16:20 Date of discharge: 07/19/25 Primary care physician: Jonathan Royal MD Consults: 07/16/25 15:54 ED Recovery Team Consult Stat Comment: Reason for consultation: ETOH use disorder 07/16/25 16:37 Addiction Medicine Provider Routine Consulting Provider: Addiction Covering Reason for consultation: alcohol use disorder with withdrawals Has provider been notified: No 07/17/25 16:01 Consult to Comprehensive Care Routine Consulting Provider: [facility] DS: Diagnosis Discharge Diagnosis (1) Alcohol use disorder, moderate, dependence: Status: Acute (2) Alcohol withdrawal: Status: Acute DS: Summary Hospital Course Hospital Course: From the history and physical by the admitting hospitalist, Flex Gonzáles MD, 07/16/25: 45-year-old male who presented to the ED for alcohol withdrawals. Patient states that he has been drinking since Tuesday, moved to drink whiskey and beers, during the day will have about 750 mL and 6-8 beers. Patient mentions, that he felt that she needed to get into rehab, however did not find a place, began feeling worse with tremors and decided to come to the ED. Patient states that he has never had any seizures. That he began drinking more about 5 years ago after he split with his significant other. Mentions that he will usually drink as he will eventually develop insomnia and this helps him sleep. At this time with mild tremors, denies any chest pain, shortness of breath or pa lpitations. 45yo M with AUD admitted with acute withdrawal syndrome; treated with phenobarbital taper and met with Addiction Medicine and started on naltrexone. Withdrawal symptoms well-controlled and discharged on naltrexone, prn trazodone for insomnia, and thiamine, folate, and multivitamin. Patient committed to maintaining sobriety and will follow up with [facility] on 07/22/25. Time Attestation Discharge Coordination Time (in mins): 35 Quality: Safe Use of Opioids Does Pt have an Active Cancer Diagnosis on the Problem List?: No Quality: Stroke Does the patient have a stroke diagnosis?: No Physical Exam Vital Signs: Vital Signs: Last Vital Signs Temp 98.4 F 07/19/25 06:58 Pulse 78 07/19/25 06:58 Resp 18 07/19/25 06:58 BP 138/97 H 07/19/25 06:58 Pulse Ox 97 07/19/25 06:58 O2 Del Method Room Air 07/19/25 06:58 BMI result Body Mass Index 32.1 Gen: in no acute distress HEENT: sclera anicteric, moist mucus membranes Neck: supple Lungs: clear to auscultation bilaterally Heart: regular rate and rhythm, no murmurs Abd: soft, non-tender, non-distended Ext: no edema Skin: warm/well-perfused Neuro: alert and oriented x3, no focal findings Psych: appropriate affect DS: Data Data Completed and Pending Completed studies during hospitalization [Text1]: Laboratory Results WBC 6.8 X10*3/uL (4.8-10.8) 07/17/25 04:03 RBC 4.88 X10*6/uL (4.60-5.80) 07/17/25 04:03 Hgb 15.7 g/dl (14.0-18.0) 07/17/25 04:03 Hct 45.2 % (42.0-52.0) 07/17/25 04:03 MCV 92.6 fL (80.0-98.0) 07/17/25 04:03 MCH 32.2 pg (27.0-33.0) 07/17/25 04:03 MCHC 34.7 g/dl (31.0-36.0) 07/17/25 04:03 RDW 11.9 % (11.0-16.0) 07/17/25 04:03 Plt Count 156 X10*3/uL (160-400) L 07/17/25 04:03 MPV 9.5 fL (9.4-12.4) 07/17/25 04:03 Immature Gran % (Auto) 0.3 % (0.0-0.4) 07/16/25 13:57 Neut % (Auto) 71.7 % (45-73) 07/16/25 13:57 Lymph % (Auto) 19.2 % (20-40) L 07/16/25 13:57 [place] % (Auto) 7.6 % (2-11) 07/16/25 13:57 Eos % (Auto) 0.9 % (0-4) 07/16/25 13:57 Baso % (Auto) 0.3 % (0-2) 07/16/25 13:57 Lymph # (Auto) 1.7 X10*3/uL (1.2-4.9) 07/16/25 13:57 [place] # (Auto) 0.7 X10*3/uL (0.1-1.2) 07/16/25 13:57 Eos # (Auto) 0.1 X10*3/uL (0.0-0.4) 07/16/25 13:57 Baso # (Auto) 0.0 X10*3/uL (0.0-0.2) 07/16/25 13:57 Abs Immat Gran (auto) 0.03 X10*3/uL (0.00-0.03) 07/16/25 13:57 Absolute Neuts (auto) 6.5 x10*3/uL (2.0-8.3) 07/16/25 13:57 Absolute Nucleated RBC 0.000 X10*3/uL (0.0-0.012) 07/17/25 04:03 Nucleated RBC % (auto) 0.0 /100WBC (0.0-0.2) 07/17/25 04:03 Sodium 140 mmol/L (135-145) 07/19/25 06:09 Potassium 4.5 mmol/L (3.3-5.1) 07/19/25 06:09 Chloride 103 mmol/L (96-108) 07/19/25 06:09 Carbon Dioxide 31 mmol/L (22-29) H 07/19/25 06:09 Anion Gap 11 (12-20) L 07/19/25 06:09 BUN 11 mg/dL (9-16) 07/19/25 06:09 Creatinine 0.85 mg/dL (0.5-1.4) 07/19/25 06:09 Estim Creat Clear Calc 149.5 07/19/25 06:09 Estimated GFR > 60 07/19/25 06:09 Random Glucose 89 mg/dL (60-115) 07/19/25 06:09 Calcium 9.2 mg/dL (8.4-10.2) 07/19/25 06:09 Magnesium 2.1 mg/dL (1.6-2.6) 07/19/25 06:09 Total Bilirubin 0.6 mg/dL (0.0-1.0) 07/19/25 06:09 AST 94 U/L (5-37) H 07/19/25 06:09 ALT 130 U/L (0-40) H 07/19/25 06:09 Alkaline Phosphatase 86 U/L (39-117) 07/19/25 06:09 Total Protein 7.3 g/dL (6.5-8.0) 07/19/25 06:09 Albumin 4.2 g/dL (3.5-5.0) 07/19/25 06:09 Lipase 34 U/L (8-78) 07/16/25 13:57 Urine Color Yellow 07/16/25: Urine Appearance Clear 07/16/25: Urine pH 8.5 (5.0-9.0) 07/16/25: Ur Specific Ramsey 1.020 (1.005-1.025) 07/16/25: Urine Protein Trace mg/dL (Neg-Trace) 07/16/25: Urine Glucose (UA) Negative mg/dL (Negative) 07/16/25: Urine Ketones Negative mg/dL (Negative) 07/16/25: Urine Blood Negative (Negative) 07/16/25: Urine Nitrite Negative (Negative) 07/16/25: Ur Leukocyte Esterase Negative (Negative) 07/16/25: Urine RBC 0-2 /HPF (0-2) 07/16/25: Urine WBC 0-5 /HPF (0-5) 07/16/25: Ur Squamous Epith Cells 0-2 /HPF (0-2) 07/16/25: Urine Bacteria None Seen (None Seen) 07/16/25 Hyaline Casts 0-2 /LPF (0-2) 07/16/25: Urine Opiates Screen Not Detected (Not Detect) 07/16/25: Ur Buprenorphine Scrn Not Detected ng/mL (Not Detect) 07/16/25 22: Ur Oxycodone Screen Not Detected ng/mL (Not Detect) 07/16/25 22: Urine Methadone Screen Not Detected ng/mL (Not Detect) 07/16/25 22:29 Urine Fentanyl Screen Not Detected (Not Detect) 07/16/25 22:29 Ur Barbiturates Screen POSITIVE (Not Detect) H 07/16/25 22:29 Ur Phencyclidine Scrn Not Detected (Not Detect) 07/16/25 22:29 Ur Amphetamines Screen Not Detected (Not Detect) 07/16/25 22:29 U Benzodiazepines Scrn Not Detected (Not Detect) 07/16/25 22:29 Urine Cocaine Screen Not Detected (Not Detect) 07/16/25 22:29 U Marijuana (THC) Screen Not Detected (Not Detect) 07/16/25 22:29 Ethyl Alcohol < 10 mg/dL 07/16/25 13:57 Discharge Plan Discharge Anticipated Discharge Date/Time: 07/19/25 11:02 Patient Disposition: Home, Self-Care Discharge Diagnosis: alcohol use disorder with withdrawal syndrome; insomnia Referrals: [facility] [Provider Group] - 07/22/25 10:00 am Referral Note: This is an intake appt. Please bring photo ID and insurance card if available. If you are unable to keep this appt, please call the office to reschedule Jonathan Royal MD [Primary Care Provider, Internal Medicine] - 1 Week Discharge Medications: New multivitamin [Daily-Kaylyn] Tablet 1 tab PO DAILY Qty: 30 0RF trazodone 50 mg Tablet 50 mg PO BEDTIME PRN (Reason: insomnia) Qty: 30 0RF naltrexone 50 mg Tablet 25 mg PO DAILY Qty: 30 0RF folic acid 1 mg Tablet 1 mg PO DAILY Qty: 30 0RF thiamine mononitrate (vit B1) 100 mg Tablet 100 mg PO DAILY Qty: 30 0RF Discharge Orders: Discharge Order (Routine); Ordered 07/19/25 Ordered By: Juan Vargas Diet: Advance to usual diet Activity on Discharge: As tolerated Stand Alone Forms: Patient Portal Discharge page Print Language: Upper Sorbian Care Plan Goals: sobriety Health Concerns: alcohol use disorder with withdrawal syndrome; insomnia Plan of Treatment: follow up with [facility] as scheduled take naltrexone 25 mg daily take trazodone 50 mg at bedtime as needed for insomnia take vitamins as prescribed Please follow up with your primary care doctor within 1 week. Return to the hospital if you experience recurrent or worsening symptoms. Assessment: See Discharge Summary.
--- NOTE | 2025-07-19 11:19 | MHC.CM.PN ---
PT MEDICALLY CLEAED FOR [facility] HOME SELF CARE W/OUTPT APPT W/[facility] ON 07/22 AT 10AM, PT WILL ARRANGE TRANSPORT
== END 2025-07-19 12:30 | disposition home or self-care (01) | DRG 775 ==
LOC: HO.ED 15:27 → HO.EDOVER 16:40 → HO.IMC 07-17 14:48
PROVIDERS: Physician Assistant; Student in an Organized Health Care Education/Training Program; Admitting Provider Internal Medicine; Emergency Provider Emergency Medicine; PCP Family Medicine; Visit Provider Family Medicine
DX: F10.239 Alcohol dependence with withdrawal, unspecified (principal); Z79.899 Other long term (current) drug therapy
CPT/HCPCS: 36415; 80053; 80307; 81001; 83690; 83735; 85025; 85027; 93005; 99285; J2470; J2560; J7120; S9485

== ENCOUNTER → 2025-07-16 13:44 | Outpatient (BNV) | payer BC, SELFPAY | PROVIDERS: Admitting Provider Internal Medicine; Emergency Provider Emergency Medicine; PCP Family Medicine; Visit Provider Internal Medicine Cardiovascular Disease | DX: R00.0 Tachycardia, unspecified (principal) | CPT/HCPCS: 93010 ==

== ENCOUNTER → 2025-07-16 16:20 | Outpatient (BNV) | payer BC, SELFPAY | PROVIDERS: Admitting Provider Internal Medicine; Emergency Provider Emergency Medicine; PCP Family Medicine; Visit Provider Nurse Practitioner Psychiatric/Mental Health | DX: F10.20 Alcohol dependence, uncomplicated (principal) | CPT/HCPCS: 99253 ==

== ENCOUNTER → 2025-07-16 16:20 | Outpatient (BNV) | payer BC, SELFPAY | PROVIDERS: Admitting Provider Internal Medicine; Emergency Provider Emergency Medicine; PCP Family Medicine; Visit Provider Student in an Organized Health Care Education/Training Program | DX: F10.20 Alcohol dependence, uncomplicated (principal) | CPT/HCPCS: 99232 ==

== ENCOUNTER 2025-07-22 09:48 | Outpatient (AMB) | payer BC, SELFPAY ==
--- NOTE | 2025-07-22 09:50 | A.OFFVIS_ITS ---
Vital Signs 07/22/25 09:56 Height 6 ft 3 in Weight 259 lb BMI 32.4 Pulse 86 Pulse Source Pulse Oximeter Pulse Oximetry (%) 99 Intake Visit Reasons: MAT Intake Allergies No Known Allergies Allergy (Verified 07/22/25 09:57) HPI HPI MAT Intake: Details: History of Present Illness The patient is a 45-year-old male presenting with a follow-up visit for Alcohol Use Disorder. He successfully refrained from alcohol over the weekend, favorably impacting his physical and mental well-being. Previously, the patient was admitted to the hospital due to complications arising from his alcohol consumption. Post-hospitalization, his treatment regimen has included the administration of naltrexone, which he takes at a modified dose of 25 mg?half of the originally prescribed 50 mg?because higher doses make him lethargic. This reduced dosage, coupled with vitamin and folic acid supplements, comprises the patient's current therapy. He remains committed to this plan, as it has effectively aided in sustaining his sobriety. He denies ever having used opiates and ensures that he has enough medication to last until his next scheduled consultation. Review of Systems - General: Reports feeling well when abstinent from alcohol. - Neurologic: Denies symptoms suggestive of opiate use, but reports fatigue with higher doses of naltrexone. Physical Exam - Vitals- Blood pressure stable. Results Plan Patient was informed and verbally consented to the use of an ambient scribe for clinic note documentation during this visit. 1. Alcohol use, unspecified, uncomplicated F10.90 The patient presents for a follow-up visit for management of Alcohol Use Disorder with naltrexone at a modified dose of 25 mg daily to prevent fatigue, as the original dose of 50 mg causes tiredness. He is maintaining his abstinence successfully and is following a supportive regimen with vitamin and folic acid supplements. He denies any opiate use and confirms that he has enough medication until the next visit. Follow-up is scheduled for one month. Discussion Notes During this visit, I discussed the continued management of Alcohol Use Disorder with the patient, emphasizing the importance of maintaining adherence to his modified naltrexone regimen, which is currently 25 mg daily due to reported side effects at higher doses. I reviewed the benefits of ongoing sobriety and addressed the supportive role of vitamin and folic acid supplementation. The potential for lethargy as a side effect of naltrexone was acknowledged, and the patient confirmed he understands the need for maintaining adequate medication supply. Follow-up care is planned for one month to monitor progress. Medical Decision Making The patient's continued management of Alcohol Use Disorder was the focus of this visit. Given his sensitivity to higher naltrexone doses, careful monitoring at the 25 mg daily dosage is warranted. His abstinence from alcohol, in conjunction with vitamin and folic acid supplementation, appears to be effective in facilitating his recovery process. The patient demonstrates insight into his condition, negating opiate use and maintaining treatment compliance. The goal is to sustain sobriety while minimizing side effects, thus necessitating ongoing evaluation and potential dose adjustments. Patient Instructions - Continue taking naltrexone at 25 mg daily as instructed. - Maintain abstinence from alcohol. - Continue vitamin and folic acid supplements as discussed. - Ensure you have enough medication until the next visit. - Follow up in one month. - Contact medical services if you experience any adverse side effects or if you are tempted to drink alcohol. HPI Comments Details: History of Present Illness The patient is a 45-year-old male presenting with a follow-up visit for Alcohol Use Disorder. He successfully refrained from alcohol over the weekend, favorably impacting his physical and mental well-being. Previously, the patient was admitted to the hospital due to complications arising from his alcohol consumption. Post-hospitalization, his treatment regimen has included the administration of naltrexone, which he takes at a modified dose of 25 mg?half of the originally prescribed 50 mg?because higher doses make him lethargic. This reduced dosage, coupled with vitamin and folic acid supplements, comprises the patient's current therapy. He remains committed to this plan, as it has effectively aided in sustaining his sobriety. He denies ever having used opiates and ensures that he has enough medication to last until his next scheduled consultation. Review of Systems - General: Reports feeling well when abstinent from alcohol. - Neurologic: Denies symptoms suggestive of opiate use, but reports fatigue with higher doses of naltrexone. Physical Exam - Vitals- Blood pressure stable. Results Plan Patient was informed and verbally consented to the use of an ambient scribe for clinic note documentation during this visit. 1. Alcohol use, unspecified, uncomplicated F10.90 The patient presents for a follow-up visit for management of Alcohol Use Disorder with naltrexone at a modified dose of 25 mg daily to prevent fatigue, as the original dose of 50 mg causes tiredness. He is maintaining his abstinence successfully and is following a supportive regimen with vitamin and folic acid supplements. He denies any opiate use and confirms that he has enough medication until the next visit. Follow-up is scheduled for one month. Discussion Notes During this visit, I discussed the continued management of Alcohol Use Disorder with the patient, emphasizing the importance of maintaining adherence to his modified naltrexone regimen, which is currently 25 mg daily due to reported side effects at higher doses. I reviewed the benefits of ongoing sobriety and addressed the supportive role of vitamin and folic acid supplementation. The potential for lethargy as a side effect of naltrexone was acknowledged, and the patient confirmed he understands the need for maintaining adequate medication supply. Follow-up care is planned for one month to monitor progress. Medical Decision Making The patient's continued management of Alcohol Use Disorder was the focus of this visit. Given his sensitivity to higher naltrexone doses, careful monitoring at the 25 mg daily dosage is warranted. His abstinence from alcohol, in conjunction with vitamin and folic acid supplementation, appears to be effective in facilitating his recovery process. The patient demonstrates insight into his condition, negating opiate use and maintaining treatment compliance. The goal is to sustain sobriety while minimizing side effects, thus necessitating ongoing evaluation and potential dose adjustments. Patient Instructions - Continue taking naltrexone at 25 mg daily as instructed. - Maintain abstinence from alcohol. - Continue vitamin and folic acid supplements as discussed. - Ensure you have enough medication until the next visit. - Follow up in one month. - Contact medical services if you experience any adverse side effects or if you are tempted to drink alcohol. [facility] Social History Household Members: None Housing: Apartment Alcohol intake: current Alcohol intake frequency: 3 or more drinks per day Alcohol type: hard liquor Patient Tobacco Use Status: Never used Tobacco service: No Physical Exam Vital Signs: Last Vital Signs Pulse 86 07/22/25 09:56 Pulse Ox 99 07/22/25 09:56 BMI result Body Mass Index 32.4 Assessment & Plan Assessment & Plan (1) Alcohol use disorder, moderate, dependence: Code(s): F10.20 - Alcohol dependence, uncomplicated Category: Medical Plan as above Coding Level of Care Code Est Pt Level 3 (71602) Diagnoses Alcohol use disorder, moderate, dependence F10.20
[2025-07-22 09:56] VITALS: PULSE 86; O2SAT 99; BMI 32.4
== END 2025-07-22 10:18 | disposition home or self-care (01) ==
LOC: HO.HCC 09:49
PROVIDERS: PCP Family Medicine; Visit Provider Internal Medicine
DX: F10.20 Alcohol dependence, uncomplicated (principal)
CPT/HCPCS: 99213

== ENCOUNTER 2025-08-19 10:29 | Outpatient (AMB) | payer BC, SELFPAY ==
--- NOTE | 2025-08-19 10:33 | A.OFFVIS_ITS ---
Vital Signs 08/19/25 10:37 Height 6 ft 3 in Weight 264 lb BMI 33.0 Pulse 115 H Pulse Source Pulse Oximeter Pulse Oximetry (%) 98 Oxygen Delivery Method Room Air Intake Visit Reasons: MAT Allergies No Known Allergies Allergy (Verified 08/19/25 10:38) HPI HPI MAT: Details: He is doing well and has no complaints. [facility] Social History Household Members: None Housing: Apartment Alcohol intake: current Alcohol intake frequency: 3 or more drinks per day Alcohol type: hard liquor Patient Tobacco Use Status: Never used Tobacco service: No Review of Systems Const All systems reviewed & are unremarkable except as noted in HPI and below Physical Exam Vital Signs: Last Vital Signs Pulse 115 H 08/19/25 10:37 Pulse Ox 98 08/19/25 10:37 Oxygen Delivery Method Room Air 08/19/25 10:37 BMI result Body Mass Index 33.0 Assessment & Plan Assessment & Plan (1) Alcohol use disorder, moderate, dependence: Comment: He reports doing well without acamprosate or naltrexone Code(s): F10.20 - Alcohol dependence, uncomplicated Category: Medical Plan: Would continue thiamine and MVI only See prn need. Medications: New thiamine HCl (vitamin B1) 100 mg PO DAILY 30 caps 5RF 30 days folic acid 1 mg PO DAILY 30 tabs 5RF 30 days Coding Level of Care Code Est Pt Level 3 (66756) Diagnoses Alcohol use disorder, moderate, dependence F10.20
[2025-08-19 10:37] VITALS: PULSE 115; O2SAT 98; BMI 33.0
== END 2025-08-19 10:53 | disposition home or self-care (01) ==
LOC: HO.HCC 10:29
PROVIDERS: PCP Family Medicine; Visit Provider Internal Medicine
DX: F10.20 Alcohol dependence, uncomplicated (principal)
CPT/HCPCS: 99213